=== PATIENT | female | born 1985 | race Caucasian/White ===

== ENCOUNTER 2025-02-22 11:17 | Emergency (ER) | payer BC, SELFPAY ==
[2025-02-22 11:33] VITALS: BP 126/99; PULSE 92; RESP 16; TEMP 36.6; O2SAT 100
[2025-02-22 11:40] LABS: EDSTREPNEGPOS1 Negative (Negative)
--- NOTE | 2025-02-22 11:56 | ED.URI ---
HPI - URI/Sore Throat General Chief Complaint: Upper Respiratory Infection Stated Complaint: Sore Throat/Vomiting Time Seen by Provider: 02/22/25 11:40 Source: patient and RN notes reviewed Mode of arrival: ambulatory Limitations: no limitations History of Present Illness HPI Narrative: 39-year-old female presents to [facility] of sore throat, nausea, vomiting, body aches, postnasal drip that started today. Patient denies any other upper respiratory symptoms, fevers, chills, sweats, abdominal pain, diarrhea, black tarry stools, chest pain, difficulty breathing every other symptoms. Patient last vomited approximately 45 minutes ago, she says it will keep some fluids down since. Patient denies any difficulty clearing secretions, dysphagia, excessive drooling, or any other symptoms. Trying [id number] to help with symptoms. Related Data Allergies Allergy/AdvReac Type Severity Reaction Status Date / Time cefaclor Allergy Unknown Verified 02/22/25 11:32 Review of Systems Review of Systems: CONSTITUTIONAL: Denies fever, chills, or sweats. Positive for body aches. EYES: Denies visual changes, redness, or discharge. ENT: Negative for for rhinorrhea, congestion, dysphagia, excessive drooling, difficulty clearing secretions, or otalgia. Positive for sore throat. CARDIOVASCULAR: Denies chest pain, palpitations, or edema. RESPIRATORY: Positive for cough. Negative for dyspnea. GASTROINTESTINAL: Denies abdominal pain, black tarry stools, vomiting blood, or diarrhea. Positive for nausea vomiting. GENITOURINARY: Denies dysuria or hematuria. SKIN: Denies rash or itching. MUSCULOSKELETAL: Denies back pain, joint pain, or myalgia. NEUROLOGIC: Denies headache, numbness, or weakness. PSYCHIATRIC: Denies anxiety or depression. All other systems reviewed are negative, except as documented in HPI. PMFSH Comments At the time of my signature, I reviewed and agree with the nursing past medical, surgical, social, and family history. There is no relevant family history pertinent to the patient complaint. Exam Narrative: GENERAL: This is a well-nourished, well-developed adult, in no apparent distress. They are non ill-appearing, nontoxic appearing. HEAD: normocephalic, atraumatic. EYES: Sclera clear/white. Vision is grossly intact. Conjunctiva normal bilaterally. Extraocular movements intact. EARS: External ears normal, auditory canals clear and without drainage, TMs without erythema or perforation. Hearing grossly intact. NOSE: External nose normal with no obvious nasal discharge, nasal turbinates erythema without swelling, no rhinorrhea. THROAT: Mucous membranes moist, posterior pharynx boggy without exudate. Uvula is midline. Postnasal drip present. NECK: Neck supple, non-tender without lymphadenopathy, masses or thyromegaly. CARDIOVASCULAR: Regular rate and rhythm without murmurs, gallops, or rubs. RESPIRATORY: Clear to auscultation. Breath sounds equal bilaterally. No wheezes, rales, or rhonchi. SKIN: warm, Dry, intact with no suspicious lesions or rash, good texture and turgor. NEURO: awake, alert, and oriented to person, place and time. There were no obvious focal neurologic abnormalities. EXTREMITIES: No joint tenderness, effusion, or edema noted. BACK: Nontender without deformity. Course Course Emergency Course: Portions of this record may have been created with voice recognition software Level of Care: [facility] Visit Vital Signs Vital signs: Vital Signs Temperature 97.8 F 02/22/25 11:33 Pulse Rate 92 02/22/25 11:33 Respiratory Rate 16 02/22/25 11:33 Blood Pressure 126/99 H 02/22/25 11:33 Pulse Oximetry 100 02/22/25 11:33 Oxygen Delivery Room Air 02/22/25 11:33 Temperature 97.8 F 02/22/25 11:33 Pulse Rate 92 02/22/25 11:33 Respiratory Rate 16 02/22/25 11:33 Blood Pressure 126/99 H 02/22/25 11:33 Pulse Oximetry 100 02/22/25 11:33 Oxygen Delivery Room Air 02/22/25 11:33 MDM - URI/Sore Throat MDM Narrative Medical decision making narrative: Rapid strep negative. Throat culture is pending. Symptoms likely viral in etiology. No evidence of dehydration on exam, moist mucous membranes, no tachycardia. Patient nontoxic appearing, no apparent distress. Will send patient home with Zofran. Given patient's throat pain will also send her home with a 1 time dose of dexamethasone. Discussed physical exam findings. Advised supportive measures and signs/symptoms to go to the ER. Pt is appropriate for outpt treatment and f/u. Differential Diagnosis Differential diagnosis: Likely upper respiratory infection, sinusitis, viral infection and pharyngitis Lab Data Labs: Lab Results 02/22/25 Range/Units 11:38 POC Grp A Strep Screen Negative (Negative) Discharge Plan Discharge Clinical Impression: Upper respiratory infection Qualifiers: URI type: unspecified viral URI Qualified Code(s): J06.9 - Acute upper respiratory infection, unspecified Patient Disposition: Home Condition: Stable Instructions: Antibiotic Form, Upper Respiratory Infection (ED) Additional Instructions: Your rapid strep swab was negative today at [facility]. You will be notified in a few days if the culture comes back positive for strep, and appropriate antibiotics will be called in for you at that time. Your symptoms are likely due to a viral illness, which is not treated with antibiotics. Viral symptoms can be present for up to 10-14 days. Take Tylenol ibuprofen as needed for fever or pain. Follow instructions on the bottle. Rest and stay hydrated. Supplement with Pedialyte or others electrolyte solutions since she been vomiting. Take Zofran as needed for nausea and vomiting. Take dexamethasone as directed. Follow up with your PCP in 5-7 days if symptoms are not improving. Go to the ER immediately if you develop difficulty breathing or swallowing, difficulty clearing secretions, excessive drooling, chest pains, fevers, uncontrollable nausea and vomiting, concerns of dehydration, or any serious concerns. Patient Language: Belarusian Prescriptions: New dexamethasone 2 mg tablet 10 mg PO ONCE 1 Days Qty: 5 0RF ondansetron 4 mg tablet,disintegrating 4 mg PO Q8H PRN (Reason: nausea and vomiting) Qty: 12 0RF Follow-up/Referrals: Ray,ASHLI Pickens [Primary Care Provider, Unknown] Time of Disposition: 11:55
== END 2025-02-22 12:10 | disposition home or self-care (01) ==
PROVIDERS: PCP Physician Assistant
DX: J06.9 Acute upper respiratory infection, unspecified (principal)
CPT/HCPCS: 87081; 87880; 99203; G0463